=== PATIENT | male | born 1940 | race Caucasian/White ===

== ENCOUNTER 2016-12-22 07:35 | Inpatient (IN) | payer OTHER ==
[~2016-12-22 07:35] MED LIST: ACETAMINOPHEN 325 MG TAB PO ONE; CEFAZOLIN 2 GM/DEXTR 100 ML IV ONE; CHLORHEXIDINE GLUC HIBICLENS 118 ML BTL TP ONE; DEXAMETHASONE 4 MG/ML VIAL IVP ONE; FAMOTIDINE 20 MG TAB PO ONE; ROPI/epiNEPH/KETOROLAC JOINT COCKTAIL IU ONE; TRANEXAMIC ACID 3,000 MG in NS 50 ML IRR ONE
[2016-12-22] MEDS ORDERED: TRANEXAMIC ACID 3,000 MG/50 ML BAG IRR ONE (07:44)
[2016-12-22] MEDS ORDERED: LIDOCAINE 1% 2 ML INJ ONE (08:08)
[2016-12-22] MEDS ORDERED: DEXAMETHASONE 4 MG/ML VIAL ONE (08:36)
[2016-12-22] MEDS ORDERED: ACETAMINOPHEN 325 MG TAB ONE (08:37)
[2016-12-22] MEDS ORDERED: FAMOTIDINE 20 MG TAB ONE (08:37)
[2016-12-22] MEDS ORDERED: PROPOFOL/EMULSION 500 MG/50 ML BOTTLE IV ONE (08:53)
[2016-12-22] MEDS ORDERED: fentaNYL 100 MCG/2 ML INJ ONE ×2 (08:53→12:29)
[2016-12-22] MEDS ORDERED: MIDAZOLAM 2 MG/2 ML VIAL ONE ×2 (10:15→10:19)
[2016-12-22] MEDS ORDERED: ONDANSETRON 4 MG/2 ML VIAL ONE (10:19)
[2016-12-22] MEDS ORDERED: PHARMACY PAIN CONSULT 1 EA MISC PRN (11:21)
[2016-12-22] MEDS ORDERED: DIPHENOXYLATE/ATROPINE LOMOTIL 1 TAB PO PRN (11:21)
[2016-12-22] MEDS ORDERED: PROMETHAZINE HCL 25 MG SUPPR PR PRN (11:21)
[2016-12-22] MEDS ORDERED: METOCLOPRAMIDE 10 MG/2 ML VIAL IVP PRN (11:21)
[2016-12-22] MEDS ORDERED: CYCLOBENZAPRINE 10 MG TAB PO PRN (11:21)
[2016-12-22] MEDS ORDERED: diphenhydrAMINE 25 MG CAP PO PRN (11:21)
[2016-12-22] MEDS ORDERED: LACTULOSE 20 GM/30 ML UDCUP PO PRN (11:21)
[2016-12-22] MEDS ORDERED: oxyCODONE IR 5 MG TAB PO PRN (11:21)
[2016-12-22] MEDS ORDERED: ONDANSETRON 4 MG/2 ML VIAL IVP PRN (11:21)
[2016-12-22] MEDS ORDERED: BISACODYL 10 MG SUPP PR PRN (11:21)
[2016-12-22] MEDS ORDERED: TEMAZEPAM 15 MG CAP PO PRN (11:21)
[2016-12-22] MEDS ORDERED: ONDANSETRON DISINTEGRATING 4 MG TAB PO PRN (11:21)
[2016-12-22] MEDS ORDERED: MAGNESIUM HYDROXIDE 30 ML UDCUP PO PRN (11:21)
[2016-12-22] MEDS ORDERED: POLYETHYLENE GLYCOL 3350 17 GM PKT PO PRN (11:21)
--- NOTE | 2016-12-22 12:12 | POSTOPPROG ---
Post Op Note Date of Operation: 12/22/16 Surgeon: Carmen Bobo Traveling Phlebotomist: Hiwot Bobo PAc Anesthesiologist: Jensen Anesthesia: Spinal Pre-op Diagnosis: R hip djd Post-op Diagnosis: same Indication: pain Procedure: R RONDA Findings: DJD hip Inf/Abcess present in the surg proc area at time of surgery?: No EBL: 100-500
[2016-12-22] MEDS ORDERED: oxyCODONE IR 5 MG TAB ONE (13:08)
[2016-12-22] MEDS: ACETAMINOPHEN 325 MG TAB PO SCH ×3 (14:35→23:15)
[2016-12-22] MEDS: LR 1,000 ML IV SCH (18:23)
[2016-12-22] MEDS: ceFAZolin 2 GM/DEXTROSE 100 ML IV SCH (18:24)
[2016-12-22] MEDS: SENNOSIDES/DOCUSATE SODIUM TAB PO SCH (20:08)
[2016-12-22] MEDS: FAMOTIDINE 20 MG TAB PO SCH (20:08)
[2016-12-22] MEDS ORDERED: PRAVASTATIN SODIUM 40 MG TAB PO SCH (21:00)
[2016-12-22] MEDS ORDERED: EZETIMIBE 10 MG TAB PO SCH (21:00)
[2016-12-23] MEDS: LR 1,000 ML IV SCH (02:47)
[2016-12-23] MEDS: ceFAZolin 2 GM/DEXTROSE 100 ML IV SCH (02:47)
[2016-12-23 02:50] VITALS: RESP 14
[2016-12-23 05:27] LABS: HEMATOCRIT 32.8 % (40.0-51.0); HEMOGLOBIN 11.2 g/dL (13.7-17.5)
[2016-12-23 05:53] LABS: ANION GAP 5 mEq/L (8-16); CALCIUM 8.2 mg/dL (8.5-10.4); CARBON DIOXIDE 27 mEq/l (22-31); CHLORIDE 100 mEq/L (97-110); CREATININE 0.9 mg/dL (0.7-1.3); GLOMERULAR FILTRATION RATE > 60; GLUCOSE 106 mg/dL (70-100); POTASSIUM 4.3 mEq/L (3.5-5.2); SODIUM 132 mEq/L (134-144)
[2016-12-23] MEDS: ACETAMINOPHEN 325 MG TAB PO SCH (06:33)
[2016-12-23 07:34] VITALS: BP 95/59; PULSE 61; TEMP 98.7; O2SAT 94
[2016-12-23] MEDS: FAMOTIDINE 20 MG TAB PO SCH (07:57)
[2016-12-23] MEDS: SENNOSIDES/DOCUSATE SODIUM TAB PO SCH (07:57)
--- NOTE | 2016-12-23 08:56 | SOAPPROG ---
SOAP Progress Note Assessment/Plan: Assessment: Asad is doing well today POD 1 s/p R RONDA 1) pain management: pain is well controlled on oral pain meds 2) VTE ppx: recommend resume xarelto daily for 3 weeks, MARILUZ hose for 2 weeks during the daytime 3) Anemia: level expected initially postop, asymptomatic, continue to monitor 4) d/c planning: d/c to home pending release from PT. Plan: 12/23/16 08:55 Subjective: Asad is doing well today, denies SOB, chest pain and N/V. Objective: Vital Signs Temp Pulse Resp BP Pulse Ox 37.1 C 61 14 95/59 L 94 12/23/16 07:33 12/23/16 07:33 12/23/16 07:33 12/23/16 07:33 12/23/16 07:33 Laboratory Results 12/23/16 04:39 12/23/16 04:39 12/22/16 12/23/16 12/24/16 05:59 05:59 05:59 Intake Total 3315 Output Total 450 Balance 2865 RLE: incision dressing is clean and dry, NVI, +pf/df ICD10 Worksheet Patient Problems: Problems Problem Status Onset Primary localized osteoarthritis of right hip Acute
[2016-12-23] MEDS ORDERED: NON-FORMULARY NEW DRUG (Ranitidine Hcl [Zantac] 300 MG) PO SCH (09:00)
[2016-12-23] MEDS ORDERED: RIVAROXABAN 10 MG TAB PO SCH (09:00)
--- NOTE | 2016-12-24 09:51 | GOP ---
[f rep st] OPERATIVE REPORT DATE OF OPERATION: 12/22/2016 SURGEON: Mikayla Bobo MD CARVING MACHINE OPERATOR: MIKE Barrera. ANESTHESIA: Spinal. PREOPERATIVE DIAGNOSIS: Right hip osteoarthritis. POSTOPERATIVE DIAGNOSIS: Right hip osteoarthritis. PROCEDURE PERFORMED: Right total hip arthroplasty with x-ray. FINDINGS: ESTIMATED BLOOD LOSS: 200 cc. INDICATIONS: The patient has progressively worsening arthritis of the hip which has failed medical management. The patient understands the treatment options including continued non-operative care an d has selected surgical intervention. The patient has decided to undergo total hip arthroplasty via the direct anterior approach, understanding the risks of the procedure including, but not limited t o, neurovascular injury, infection, persistent pain, component wear and loosening, deep venous throm bosis, pulmonary embolism, limb length inequality, hip instability (including dislocation), and intr a-operative fractures. DESCRIPTION OF PROCEDURE: After proper identification of the patient including verification and mar jonathan the surgical site, the patient was brought to the operating room and placed in the supine posit ion. All bony prominences were well padded. Anesthesia was induced without complication and intrav enous prophylactic antibiotics were administered prior to skin incision. The operative leg was placed in the Trumpf Arch table extension and the well leg in a Yellofin leg h older. The patient was prepped and draped in the usual sterile fashion. The C-arm was draped for i ntra-operative fluoroscopy to check acetabular position, femoral component position including leg le ngth and femoral offset. Attention was then drawn to surgical exposure of the hip. An incision was made with a #10 [place] er blade starting 3 cm lateral and 3 cm distal to the anterior superior iliac spine measuring 8-10 c m and coursing distally toward the greater trochanter. The skin and subcutaneous tissues were divid ed sharply down to the fascia abimbola. The fascia abimbola was incised in line with the skin incision expo sing the underlying tensor fascia abimbola muscle. The muscle was bluntly elevated from the fascia and the first extracapsular Cobra retractor was placed laterally at the junction of the superior femoral neck and greater trochanter. The lateral femoral circumflex vessels were identified, cauterized, a nd divided with the Aquamantys bipolar cautery. The deep investing fascia of the TFL was divided to allow proper mobilization of the muscle preventing damage during the retraction. The reflected hea d of the rectus femoris muscle was elevated off the anterior hip capsule and a medial Cobra retracto r was placed just proximal to the lesser trochanter. The anterior capsulotomy was made sharply from the superolateral acetabulum to the saddle junction o f the superior femoral neck and greater trochanter, then coursing inferomedial towards the lesser tr ochanter. The retractors were then placed in the intracapsular position for femoral neck osteotomy. Corresponding to pre-operative templating, the osteotomy was made with the oscillating saw careful ly protecting the greater trochanter and soft tissues. The femoral head was removed from the acetab ulum with a corkscrew and confirmed to be severely arthritic with exposed bone, deformity and osteop hytes. Similar findings were confirmed in the acetabulum. The Arch table extension was then placed in 40 degrees external rotation. Attention was then drawn to the acetabular preparation. After placement of the anterior and posteri or Cobra retractors outside the labrum and intracapsular, the circumferential labrum was removed sha rply. The foveal contents were then removed and hemostasis obtained with cautery. The first reamer selected was sized using the removed femoral head. Reaming began with medializatio n and then commenced in 2 mm increments at 45 degrees of abduction and 15 degrees of anteversion usi ng fluoroscopic navigation. Reaming ceased 1 mm less than the definitive acetabular component and c orresponded to the pre-operative templating. The final acetabular component was inserted using fluo roscopy to achieve proper orientation yielding excellent purchase and stability in the acetabulum. The final acetabular liner was then placed and its seating confirmed. Attention was then turned to the femur. The Arch table extension was placed in extension and adduct ion, delivering the osteotomized femoral neck into the wound. A 2-pronged femoral elevator was plac ed at the calcar and another at the tip of the greater trochanter. The posterolateral capsule was r eleased with cautery allowing mobilization of the femur lateral and anterior for preparation. The e xternal rotators were visualized and preserved. A curette and rongeur were used to open the startin g point for broaching. Serial broaching started with the #0 broach and ended with the broach that e xhibited excellent fit in the proximal femur. A change in pitch during mallet strikes was accompani ed by the inability to advance the broach any further. The trial reduction was performed and fluoro scopic navigation was utilized to check limb length. Adjustments were made to equalize limb length accordingly. After the final trials were accepted they were removed and the wound was copiously lavaged. The fem oral component was seated to the same depth as the final broach and the femoral head was impacted on to the clean trunnion. The hip was then reduced for the final time and once more fluoroscopy was us ed to check that limb length equality was achieved. The wound was irrigated and closed in layers, the fascia abimbola with 2-0 Quill, the subcutaneous tissu e with 2-0 Quill, and the skin with Dermabond. Sterile dressings were applied. Final sharps and sp onge counts were accurate. The patient was then transferred to a hospital bed and brought to the re covery room in stable condition. IMPLANTS: Accolade II, size 9, at 127. Acetabular component, a 60 mm Tritanium. The liner is a Tr ident X3 36 mm. The head is a Biolox Delta 36 mm +0. /[id number]/MODL
== END 2016-12-23 11:21 | disposition home or self-care (01) | DRG 470 ==
LOC: F3N 07:35
PROVIDERS: ADMIT Orthopaedic Surgery; ATTEND Orthopaedic Surgery
PROC: 0SR904Z Replacement of Right Hip Joint with Ceramic on Polyethylene Synthetic Substitute, Open Approach (ICD-10-PCS; principal; 2016-12-22 10:15)
DX: M16.11 Unilateral primary osteoarthritis, right hip (principal); K21.9 Gastro-esophageal reflux disease without esophagitis; Z86.718 Personal history of other venous thrombosis and embolism; Z86.711 Personal history of pulmonary embolism; Z85.46 Personal history of malignant neoplasm of prostate
CPT/HCPCS: 97110-GP; 97116-GP; 97161-GP; 97165-GO; 97530-GP; G8978-GP-CJ; G8979-GP-CI; G8980-GP-CI; G8987-GO-CI; G8988-GO-CI; G8989-GO-CI; J0171; J0690; J1100; J1885; J2250; J2405; J2704; J2795; J3010

== ENCOUNTER 2017-02-02 07:15 | Inpatient (IN) | payer OTHER ==
[2017-02-05] MEDS ORDERED: LIDOCAINE 1% 2 ML INJ ID PRN (06:12)
[2017-02-05] MEDS ORDERED: LR 1,000 ML IV ONE (06:12)
--- NOTE | 2017-02-05 06:42 | PDANEPAE ---
ANE History of Present Illness 76 yo M here for revision R RONDA ANE Past Medical History - Cardiovascular History Hx Hypertension: No Hx Arrhythmias: No Hx Chest Pain: No Hx Coronary Artery / Peripheral Vascular Disease: No Hx CHF / Valvular Disease: No Hx Palpitations: No - Pulmonary History Hx COPD: No Hx Asthma/Reactive Airway Disease: No Hx Recent Upper Respiratory Infection: No Hx Oxygen in Use at Home: No - Neurologic History Hx Cerebrovascular Accident: No Hx Seizures: No Hx Dementia: No - Endocrine History Hx Diabetes: No - Renal History Hx Renal Disorders: No - Liver History Hx Hepatic Disorders: No - Neurological & Psychiatric Hx Hx Neurological and Psychiatric Disorders: No - Cancer History Hx Cancer: Yes - Congenital Disorder History Hx Congenital Disorders: No - GI History Hx Gastrointestinal Disorders: Yes - Chronic Pain History Chronic Pain: No (right hip) ANE Review of Systems - Exercise capacity Exercise capacity: >=4 METS - Systems Cardiac: Denies: chest pain Hematologic/Lymphatic: Reports: blood clots, other (PE) ANE Patient History - Allergies Allergies/Adverse Reactions: hydrocodone [From Vicodin] Allergy (Verified 11/28/16 10:53) hallucinations morphine Allergy (Verified 11/28/16 10:53) Vomiting - Home Medications Home medications: home medication list seen and reviewed Home Medications: C/E/Zn/Cu/OM3/DHA/EPA/LUT/ZEAX [Preservision Areds 2 Softgel] 1 each PO DAILY [Last Taken 12/08/16] Ezetimibe [Zetia 10 MG (*)] 10 mg PO HS 11/21/16 [Last Taken 12/15/16] Herbals/Supplements -Info Only 1 ea PO DAILY 11/21/16 [Last Taken 12/08/16] Multivitamins [Multivitamin (*)] 1 each PO DAILY 11/21/16 [Last Taken 12/08/16] Pravastatin Sodium 40 mg PO HS 11/21/16 [Last Taken 12/15/16] Ranitidine HCl [Zantac] 300 mg PO DAILY 11/21/16 [Last Taken 12/22/16 06:30] Rivaroxaban [Xarelto 10mg (*)] 20 mg PO DAILY 11/21/16 [Last Taken 12/17/16] - NPO status NPO Since - Liquids (Date): 02/04/17 NPO Since - Liquids (Time): 19:00 NPO Since - Solids (Date): 02/04/17 NPO Since - Solids (Time): 17:30 - Anes Hx Anes Hx: no prior problems - Smoking Hx Smoking Status: Never smoked - Alcohol Use Alcohol Use: Occasionally - Family Anes Hx Family Anes Hx: none Family Hx Anesthesia Complications: none ANE Labs/Vital Signs - Vital Signs Blood Pressure: 116/75 Heart Rate: 71 Respiratory Rate: 18 O2 Sat (%): 97 Height: 187.96 cm Weight: 86.183 kg ANE Physical Exam - Airway Neck exam: FROM Mallampati Score: Class 2 Mouth exam: presley - Pulmonary Pulmonary: no respiratory distress, clear to auscultation - Cardiovascular Cardiovascular: regular rate and rhythym, no murmur, rub, or gallop - ASA Status ASA Status: III ANE Anesthesia Plan Anesthesia Plan: MAC, spinal
[2017-02-05] MEDS ORDERED: MIDAZOLAM 2 MG/2 ML VIAL IVP ONE (06:44)
[2017-02-05] MEDS ORDERED: ROPI/epiNEPH/KETOROLAC JOINT COCKTAIL IU ONE (07:00)
[2017-02-05] MEDS ORDERED: ACETAMINOPHEN 325 MG TAB PO ONE (07:00)
[2017-02-05] MEDS ORDERED: CHLORHEXIDINE GLUC HIBICLENS 118 ML BTL TP ONE (07:00)
[2017-02-05] MEDS ORDERED: POVIDONE-IODINE 20 ML in SODIUM CL IRRIG SOLUTION 500 ML IRR ONE (07:00)
[2017-02-05] MEDS ORDERED: FAMOTIDINE 20 MG TAB PO ONE (07:00)
[2017-02-05] MEDS ORDERED: CEFAZOLIN 2 GM/DEXTR 100 ML IV ONE (07:00)
[2017-02-05] MEDS ORDERED: TRANEXAMIC ACID 3,000 MG in NS 50 ML IRR ONE (07:00)
[2017-02-05] MEDS ORDERED: DEXAMETHASONE 4 MG/ML VIAL IVP ONE (07:00)
[2017-02-05] MEDS ORDERED: PROPOFOL/EMULSION 500 MG/50 ML BOTTLE IV ONE ×2 (07:04→08:32)
--- NOTE | 2017-02-05 07:13 | PDHPUP ---
History & Physical Update H&P update statement: This history and physical update is based on an assessment of the patient which was completed after admission or registration (within 24 hours), but prior to the surgery/procedure. H&P update: H&P reviewed & patient examined, no change in patient's condition since H&P completed
[2017-02-05] MEDS ORDERED: TRANEXAMIC ACID 3,000 MG/50 ML BAG IRR ONE (07:14)
[2017-02-05] MEDS ORDERED: BISACODYL 10 MG SUPP PR PRN (07:27)
[2017-02-05] MEDS ORDERED: PROMETHAZINE HCL 25 MG/ML INJ IVP PRN (07:27)
[2017-02-05] MEDS ORDERED: LACTULOSE 20 GM/30 ML UDCUP PO PRN (07:27)
[2017-02-05] MEDS ORDERED: PROMETHAZINE HCL 25 MG SUPPR PR PRN (07:27)
[2017-02-05] MEDS ORDERED: MAGNESIUM HYDROXIDE 30 ML UDCUP PO PRN (07:27)
[2017-02-05] MEDS ORDERED: ONDANSETRON DISINTEGRATING 4 MG TAB PO PRN (07:27)
[2017-02-05] MEDS ORDERED: METOCLOPRAMIDE 10 MG/2 ML VIAL IVP PRN (07:27)
[2017-02-05] MEDS ORDERED: diphenhydrAMINE 25 MG CAP PO PRN (07:27)
[2017-02-05] MEDS ORDERED: TEMAZEPAM 15 MG CAP PO PRN (07:27)
[2017-02-05] MEDS ORDERED: DIPHENOXYLATE/ATROPINE LOMOTIL 1 TAB PO PRN (07:27)
[2017-02-05] MEDS ORDERED: POLYETHYLENE GLYCOL 3350 17 GM PKT PO PRN (07:27)
[2017-02-05] MEDS ORDERED: CYCLOBENZAPRINE 10 MG TAB PO PRN (07:27)
[2017-02-05] MEDS ORDERED: ONDANSETRON 4 MG/2 ML VIAL IVP PRN ×2 (07:27→08:49)
[2017-02-05] MEDS ORDERED: PHARMACY PAIN CONSULT 1 EA MISC PRN (07:27)
[2017-02-05] MEDS ORDERED: PHENYLEPHRINE HCL 100 MCG/ML SYR ONE (08:09)
[2017-02-05] MEDS ORDERED: epHEDrine SULFATE 10 MG/ML SYR ONE (08:09)
[2017-02-05] MEDS ORDERED: NALOXONE HCL 0.4 MG/ML INJ IVP PRN (08:49)
[2017-02-05] MEDS ORDERED: ACETAMINOPHEN 500 MG TAB PO PRN (08:49)
[2017-02-05] MEDS ORDERED: HYDROmorphONE/DILAUDID 1 MG/ML SYR IVP PRN (08:49)
[2017-02-05] MEDS ORDERED: OXYCODONE/APAP 5/325 TAB PO PRN (08:49)
[2017-02-05] MEDS ORDERED: fentaNYL 100 MCG/2 ML INJ ONE ×2 (09:28→10:04)
[2017-02-05] MEDS: fentaNYL 100 MCG/2 ML INJ IVP PRN ×3 (09:29→10:06)
--- NOTE | 2017-02-05 09:51 | POSTOPPROG ---
Post Op Note Date of Operation: 02/05/17 Surgeon: Carmen Bobo Stone Lathe Operator: Hiwot Bobo PAc Anesthesiologist: Nader Anesthesia: Spinal Pre-op Diagnosis: R erlin-prosthetic femur fx Post-op Diagnosis: same Indication: pain, fx Procedure: Rev R Femur RONDA Findings: prox femur fx Inf/Abcess present in the surg proc area at time of surgery?: No EBL: 100-500
[2017-02-05] MEDS: SENNOSIDES/DOCUSATE SODIUM TAB PO SCH ×2 (10:44→21:07)
[2017-02-05] MEDS: ACETAMINOPHEN 325 MG TAB PO SCH ×2 (11:27→18:15)
[2017-02-05] MEDS: oxyCODONE IR 5 MG TAB PO PRN ×3 (11:27→21:07)
[2017-02-05] MEDS: LR 1,000 ML IV SCH ×2 (11:27→21:06)
--- NOTE | 2017-02-05 11:47 | GOP ---
[f rep st] OPERATIVE REPORT DATE OF OPERATION: 02/05/2017 SURGEON: Mikayla Bobo MD INSURANCE HEALTHCARE CONSULTANT: Hiwot Bobo PA-C. ANESTHESIA: Spinal. PREOPERATIVE DIAGNOSIS: Right hip periprosthetic femur fracture. POSTOPERATIVE DIAGNOSIS: Right hip periprosthetic femur fracture. PROCEDURE PERFORMED: Revision right femoral component for a total hip arthroplasty. FINDINGS: ESTIMATED BLOOD LOSS: 200 cc. INDICATIONS: Patient is a 76-year-old male who had subsidence in fracture of a right proximal femur , status post right total hip arthroplasty approximately 7 weeks ago. Patient had a minimal amount of pain but had a significant leg length discrepancy and unstable stem. Risks and benefits were dis cussed with the patient of operative and nonoperative intervention. Decision was made to proceed wi th a right revision total hip arthroplasty. Informed consent was obtained after discussing the risk s and benefits including bleeding, infection, damage to nerves and vessels, need for further surgery , risk of blood clots, blood clots going to his lungs, and rare things like stroke, heart, and . Patient expressed understanding. DESCRIPTION OF PROCEDURE: Patient identified in the preoperative holding area. His right lower ext remity was marked. He was then brought back to the operating room after induction of anesthesia. H e was positioned on the operating table. Time-out was taken for patient, laterality, procedure, all ergies, antibiotic status. Patient was then prepped and draped in the usual sterile fashion. Proce eded with an incision through his prior anterolateral incision spreading between the TFL and the wiley torius down between the rectus and the adductors, identified the old capsule. The fracture line was noted. We were able to dislocate the hip. The prior femoral stem was removed. It had subsided a fair amount. We then reduced the fracture, placed a cable proximal and distal to the lesser trochan ter without difficulty which was confirmed n C-arm fluoroscopy. We then secured these in place. Tr ial broaching was taken. We took a trial x-ray with a size 11 Accolade II stem in place. This gave good fill and was very stable. Decided to proceed with the #11 accolade II 127 stem. Placed a -2.5 ball/[address] Patient was reduced, taken through range of motion which was noted to be stable. Incision was copiously irrigated. Incision was closed in layers, and patient was placed in a ster ile dressing, awakened, and brought to PACU in good condition with a well perfused limb. The plan is make patient touch down weightbearing. He will be admitted to orthopedic service. /[id number]/MODL
[2017-02-05] MEDS: ceFAZolin 2 GM/DEXTROSE 100 ML IV SCH ×2 (14:11→21:07)
--- NOTE | 2017-02-05 17:13 | POSTANESTH ---
Post Anesthetic Evaluation Cardiovascular Status: Normal, Stable, Similar to Pre-Op Cond Respiratory Status: Normal, Stable, Similar to Pre-op Cond. Level of Consciousness/Mental Status: Can Participate in Eval, Alert and Oriented Pain Control: Adequate, Prn Tx Ordered Nausea/Vomiting Control: Adequate, Prn Tx Ordered Complications Possibly Related to Anesthesia: None Noted
[2017-02-05] MEDS ORDERED: EZETIMIBE 10 MG TAB PO SCH (21:00)
[2017-02-05] MEDS ORDERED: PRAVASTATIN SODIUM 40 MG TAB PO SCH (21:00)
[2017-02-05] MEDS: FAMOTIDINE 20 MG TAB PO SCH (21:06)
[2017-02-06] MEDS: ACETAMINOPHEN 325 MG TAB PO SCH ×3 (00:08→12:38)
[2017-02-06 05:26] LABS: HEMATOCRIT 29.6 % (40.0-51.0); HEMOGLOBIN 9.8 g/dL (13.7-17.5)
[2017-02-06 05:48] LABS: ANION GAP 5 mEq/L (8-16); CALCIUM 8.9 mg/dL (8.5-10.4); CARBON DIOXIDE 26 mEq/l (22-31); CHLORIDE 102 mEq/L (97-110); CREATININE 0.9 mg/dL (0.7-1.3); GLOMERULAR FILTRATION RATE > 60; GLUCOSE 102 mg/dL (70-100); POTASSIUM 4.4 mEq/L (3.5-5.2); SODIUM 133 mEq/L (134-144)
[2017-02-06] MEDS: oxyCODONE IR 5 MG TAB PO PRN ×2 (08:40→15:30)
[2017-02-06] MEDS: SENNOSIDES/DOCUSATE SODIUM TAB PO SCH (08:41)
[2017-02-06] MEDS: FAMOTIDINE 20 MG TAB PO SCH (08:41)
[2017-02-06] MEDS ORDERED: RIVAROXABAN 10 MG TAB PO SCH (09:00)
[2017-02-06] MEDS ORDERED: NON-FORMULARY NEW DRUG (Ranitidine Hcl [Zantac] 300 MG) PO SCH (09:00)
[2017-02-06 09:02] VITALS: RESP 16
[2017-02-06 12:28] VITALS: BP 94/55; PULSE 69; TEMP 97.5; O2SAT 94
--- NOTE | 2017-02-06 15:15 | SOAPPROG ---
SOAP Progress Note Assessment/Plan: Assessment: Asad is POD 1 s/p R RONDA revision due to periprosthetic fracture 1) pain management: pain well controlled on oral pain meds 2) Toe touch weight bearing precaution with crutches or walker, no active hip flexion, no marching exercises 3) VTE ppx: recommend patient resume xarelto 4) D/c planning: d/c to home today Plan: 02/06/17 15:13 Subjective: Asad is doing well today, eager for d/c to home, reports mild pain. denies n/v , chest pain, SOB Objective: Vital Signs Temp Pulse Resp BP Pulse Ox 36.4 C 69 16 94/55 L 94 02/06/17 12:00 02/06/17 12:00 02/06/17 12:00 02/06/17 12:00 02/06/17 12:00 Laboratory Results 02/06/17 05:11 02/06/17 05:11 02/05/17 02/06/17 02/07/17 05:59 05:59 05:59 Intake Total 2250 Output Total 1025 Balance 1225 RLE: incision dressing is clean and dry, NVI, +pf/df ICD10 Worksheet Patient Problems: Problems Problem Status Onset Periprosthetic fracture around internal prosthetic hip joint Acute Primary localized osteoarthritis of right hip Acute
== END 2017-02-06 15:53 | disposition home or self-care (01) | DRG 468 ==
LOC: F3N 02-05 05:51
PROVIDERS: ADMIT Orthopaedic Surgery; ATTEND Orthopaedic Surgery
PROC: 0SRR03Z Replacement of Right Hip Joint, Femoral Surface with Ceramic Synthetic Substitute, Open Approach (ICD-10-PCS; principal; 2017-02-05 07:15)
PROC: 0SPR0JZ Removal of Synthetic Substitute from Right Hip Joint, Femoral Surface, Open Approach (ICD-10-PCS; principal; 2017-02-05 07:15)
DX: M97.01XA Periprosthetic fracture around internal prosthetic right hip joint, initial encounter (principal); Z96.641 Presence of right artificial hip joint
CPT/HCPCS: 97116-GP; 97161-GP; 97165-GO; C1713; G8978-GP-CK; G8979-GP-CI; G8980-GP-CI; G8987-GO-CI; G8988-GO-CI; G8989-GO-CI; J0171; J0690; J1100; J1885; J2250; J2370; J2704; J2795; J3010